=== PATIENT | female | born 1995 | race Two or more races ===

== ENCOUNTER 2021-02-25 12:00 | Inpatient (IN) | payer OTHER ==
[~2021-02-25] VITALS: Ht 167.6 cm; Wt 115.7 kg
[~2021-02-25 12:00] MED LIST: PRENATAL 19 TA1 EAC1 PO
[2021-02-25] MEDS ORDERED: PRENATAL + DHA1 EAC1 PO (14:36)
== END 2021-03-06 13:57 | disposition home or self-care (01) | DRG 785 ==
LOC: OB/GYN 03-04 07:00 → O/R 03-04 10:18 → OB/GYN 03-04 12:00
PROVIDERS: ADMIT Obstetrics & Gynecology Maternal & Fetal Medicine; ATTEND Obstetrics & Gynecology Maternal & Fetal Medicine
PROC: 0UB70ZZ Excision of Bilateral Fallopian Tubes, Open Approach (ICD-10-PCS; 2021-03-04)
PROC: 4A1HXFZ Monitoring of Products of Conception, Cardiac Rhythm, External Approach (ICD-10-PCS; 2021-03-04)
PROC: 10D00Z1 Extraction of Products of Conception, Low, Open Approach (ICD-10-PCS; principal; 2021-03-04 07:00)
DX: O65.5 Obstructed labor due to abnormality of maternal pelvic organs (principal); O34.211 Maternal care for low transverse scar from previous cesarean delivery; Z30.2 Encounter for sterilization; Z37.0 Single live birth; Z3A.39 39 weeks gestation of pregnancy